=== PATIENT | male | born 1985 | race Caucasian/White ===

== ENCOUNTER → 2022-06-29 17:04 | Outpatient (BNVA) | payer BC, SELFPAY | PROVIDERS: Visit Provider Psychiatry & Neurology Psychiatry | DX: Z13.89 Encounter for screening for other disorder (principal) ==

== ENCOUNTER 2022-09-27 14:56 | Outpatient (AMB) | payer BC, SELFPAY ==
[2022-09-27 14:50] VITALS: BP 123/83; PULSE 95
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
== END 2022-09-27 15:15 | disposition home or self-care (01) ==
LOC: HO.HOP 14:56
PROVIDERS: Visit Provider Psychiatry & Neurology Psychiatry
DX: F98.8 Other specified behavioral and emotional disorders with onset usually occurring in childhood and adolescence (principal); F32.4 Major depressive disorder, single episode, in partial remission
CPT/HCPCS: 90833; 99213

== ENCOUNTER → 2022-09-27 14:56 | Outpatient (BNVA) | payer BC, SELFPAY | PROVIDERS: Visit Provider Psychiatry & Neurology Psychiatry ==

== ENCOUNTER 2022-12-20 10:37 | Outpatient (AMB) | payer BC, SELFPAY ==
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
[2022-12-20 10:47] VITALS: BP 108/64; PULSE 90
== END 2022-12-20 11:59 | disposition home or self-care (01) ==
LOC: HO.HOP 10:37
PROVIDERS: PCP Physician Assistant Medical; Visit Provider Psychiatry & Neurology Psychiatry
DX: F32.4 Major depressive disorder, single episode, in partial remission (principal); F98.8 Other specified behavioral and emotional disorders with onset usually occurring in childhood and adolescence; F41.1 Generalized anxiety disorder
CPT/HCPCS: 99214

== ENCOUNTER → 2022-12-20 10:37 | Outpatient (BNVA) | payer BC, SELFPAY | PROVIDERS: PCP Physician Assistant Medical; Visit Provider Psychiatry & Neurology Psychiatry ==

== ENCOUNTER 2023-03-24 14:13 | Outpatient (AMB) | payer BC, SELFPAY ==
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
== END 2023-03-24 14:16 | disposition home or self-care (01) ==
LOC: HO.HOP 14:13
PROVIDERS: PCP Physician Assistant Medical; Visit Provider Psychiatry & Neurology Psychiatry
DX: F41.1 Generalized anxiety disorder (principal); F98.8 Other specified behavioral and emotional disorders with onset usually occurring in childhood and adolescence; F32.5 Major depressive disorder, single episode, in full remission
CPT/HCPCS: 99213

== ENCOUNTER → 2023-03-24 14:13 | Outpatient (BNVA) | payer BC, SELFPAY | PROVIDERS: PCP Physician Assistant Medical; Visit Provider Psychiatry & Neurology Psychiatry ==

== ENCOUNTER → 2023-07-21 13:37 | Outpatient (BNVA) | payer BC, SELFPAY | PROVIDERS: PCP Physician Assistant Medical; Visit Provider Psychiatry & Neurology Psychiatry ==

== ENCOUNTER 2023-10-24 14:44 | Outpatient (AMB) | payer BC, SELFPAY ==
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
== END 2023-10-24 14:44 | disposition home or self-care (01) ==
LOC: HO.HOP 14:44
PROVIDERS: Visit Provider Psychiatry & Neurology Psychiatry
DX: F41.1 Generalized anxiety disorder (principal); F32.5 Major depressive disorder, single episode, in full remission; F98.8 Other specified behavioral and emotional disorders with onset usually occurring in childhood and adolescence
CPT/HCPCS: 99213

== ENCOUNTER → 2023-10-24 14:44 | Outpatient (BNVA) | payer BC, SELFPAY | PROVIDERS: Visit Provider Psychiatry & Neurology Psychiatry ==